=== PATIENT | female | born 1975 | race Caucasian/White ===

== ENCOUNTER 2017-10-18 14:20 | Emergency (ER) | payer OTHER ==
[2017-10-18 14:29] VITALS: BP 150/80
--- NOTE | 2017-10-18 15:12 | ED Physician Documentation ---
History of Present Illness - Stated complaint Stated Complaint: LEG PAIN - Chief complaint Chief Complaint: Ext Problem - History obtained from History obtained from: Patient - History of Present Illness Timing: Last night Pain level max: 7 Pain level now: 7 Improved by: rest Worsened by: walking - Additonal information Additional information: Patient is a 41-year-old female who states she was getting out of bed, felt/ heard a pop in her left lower extremity and now has difficulty walking. She is able to bear weight, but it is painful. Has been taking Tylenol for pain. No history of clotting disorders, no recent travel surgery or immobilization. Review of Systems Constitutional: denies: Fever, Chills GI: denies: Nausea, Vomiting : denies: Now [facility] PAST MEDICAL HISTORY - Past Medical History Past Medical History: Yes GI: Pancreatitis - Past Surgical History Past Surgical History: Yes General: Cholecystectomy - Present Medications Home Medications: Ambulatory Orders Medication Instructions Recorded Confirmed Meloxicam [Mobic] 7.5 mg PO BID PRN #20 tablet 10/18/17 - Allergies Allergies/Adverse Reactions: Allergies Allergy/AdvReac Type Severity Reaction Status Date / Time No Known Drug Allergies Allergy Verified 11/16/15 20:58 - Social History Does the pt smoke?: No Smoking Status: Never smoker Does the pt drink ETOH?: No Does the pt have substance abuse?: No - Immunizations Immunizations are current?: Yes PD ED PE NORMAL - Vitals Vital signs reviewed: Yes - General General: Alert and oriented X 3, No acute distress - Derm Derm: Warm and dry - Extremities Extremities: Other (L calf - plantar flexion present with calderon test. mild swelling. no ecchymosis. no bony tenderness. NVI.) - Neuro Neuro: Alert and oriented X 3 Results - Vitals Vitals: Vital Signs - 24 hr 10/18/17 14:26 Temperature 36.0 C L Heart Rate 97 Respiratory 16 Rate Blood Pressure 150/80 H O2 Saturation 98 Oxygen O2 Source Room air PD MEDICAL DECISION MAKING - ED course Complexity details: considered differential, d/w patient ED course: Patient is a 41-year-old female who presents to the emergency department what sounds like a left calf strain. No evidence of Achilles rupture. She is not tender along the Achilles tendon. No compartment syndrome. Compartments are all soft. Neurovascularly intact. No evidence of DVT. Placed in a walking boot for comfort and will follow up closely with her doctor. Patient counseled regarding signs and symptoms for which I believe and urgent re-evaluation would be necessary. Patient with good understanding of and agreement to plan and is comfortable going home at this time This document was made in part using voice recognition software. While efforts are made to proofread this document, sound alike and grammatical errors may occur. Departure - Departure Disposition: Home, Self Care Clinical Impression: Strain of calf muscle Qualifiers: Encounter type: initial encounter Laterality: left Qualified Code(s): S86.812A - Strain of other muscle(s) and tendon(s) at lower leg level, left leg, initial encounter Condition: Good Instructions: ED Strain Muscle Ext Follow-Up: your,doctor in 1 week for repeat evaluation [Other] Prescriptions: Meloxicam [Mobic] 7.5 mg PO BID PRN #20 tablet PRN Reason: Pain Comments: You need to be reevaluated in 1 week, wear the boot as needed for comfort. Make sure to take your foot out of the brace regularly for gentle stretching. You can also use ice and heat at home. Return if you worsen. Discharge Date/Time: 10/18/17 15:20
== END 2017-10-18 15:20 | disposition home or self-care (01) ==
LOC: ED 14:20
DX: S86.112A Strain of other muscle(s) and tendon(s) of posterior muscle group at lower leg level, left leg, initial encounter (principal); X58.XXXA Exposure to other specified factors, initial encounter; Y92.013 Bedroom of single-family (private) house as the place of occurrence of the external cause; Z86.39 Personal history of other endocrine, nutritional and metabolic disease
CPT/HCPCS: 99283

== ENCOUNTER 2023-01-10 15:25 | Outpatient (CLI) | payer OTHER ==
[2023-01-10 15:39] LABS: BASOPHILS # (AUTO) 0.1 10^3/uL (0.0-0.1); BASOPHILS % (AUTO) 0.6 %; EOSINOPHILS # (AUTO) 0.2 10^3/uL (0.0-0.7); HCT - HEMATOCRIT 44.9 % (37.0-47.0); HGB - HEMOGLOBIN 14.8 g/dL (12.0-16.0); LYMPHOCYTES # (AUTO) 2.5 10^3/uL (1.5-3.5); LYMPHOCYTES % (AUTO) 31.1 %; MEAN CORPUSCULAR HEMOGLOBIN 28.3 pg (27.0-31.0); MEAN CORPUSCULAR VOLUME 85.9 fL (81.0-99.0); MEAN PLATELET VOLUME 8.2 fL (7.9-10.8); MONOCYTES # (AUTO) 0.5 10^3/uL (0.0-1.0); MONOCYTES % (AUTO) 6.4 %; NEUTROPHILS # (AUTO) 4.7 10^3/uL (1.5-6.6); NEUTROPHILS % (AUTO) 58.7 %; PLT - PLATELET COUNT 383 10^3/uL (130-450); RED BLOOD COUNT 5.23 10^6/uL (4.20-5.40); RED CELL DISTRIBUTION WIDTH 13.7 % (12.0-15.0)
[2023-01-10 16:00] LABS: ALBUMIN 3.7 g/dL (3.2-5.5); ALKALINE PHOSPHATASE 80 IU/L (42-121); ALT ALANINE AMINOTRANSFERASE 23 IU/L (10-60); AST ASPARTATE AMINOTRANSFERASE 18 IU/L (10-42); BILIRUBIN,TOTAL 0.4 mg/dL (0.2-1.0); BUN - BLOOD UREA NITROGEN 16 mg/dL (6-20); CALCIUM 9.2 mg/dL (8.5-10.3); CARBON DIOXIDE - CO2 28 mmol/L (21-32); CHLORIDE 105 mmol/L (101-111); CHOL/HDL RATIO 6.9 (<4.4); CHOLESTEROL 291 mg/dL; CREATININE 0.9 mg/dL (0.4-1.0); GFR - MDRD 67 (>89); GLUCOSE 101 mg/dL (70-100); HDL CHOLESTEROL 42 mg/dL; LDL CHOLESTEROL,CALCULATED 183 mg/dL; LDL/HDL RATIO 4.4 (<4.4); POTASSIUM 3.9 mmol/L (3.5-5.0); SODIUM 139 mmol/L (135-145); TOTAL PROTEIN 7.4 g/dL (6.7-8.2); TRIGLYCERIDES 331 mg/dL; VLDL CHOLESTEROL 66 mg/dL
[2023-01-10 16:19] LABS: THYROID STIMULATING HORMONE 2.12 uIU/mL (0.34-5.60)
[2023-01-10 21:41] LABS: ESTIMATED AVERAGE GLUCOSE 105 mg/dL (70-100); HEMOGLOBIN A1c% 5.3 % (4.27-6.07)
== END 2023-01-10 15:26 | disposition home or self-care (01) ==
LOC: LAB 15:25
PROVIDERS: ATTEND Nurse Practitioner Family
DX: Z00.00 Encounter for general adult medical examination without abnormal findings (principal); Z13.220 Encounter for screening for lipoid disorders; E66.01 Morbid (severe) obesity due to excess calories; Z68.42 Body mass index [BMI] 45.0-49.9, adult; N91.2 Amenorrhea, unspecified; N95.9 Unspecified menopausal and perimenopausal disorder
CPT/HCPCS: 36415; 80053; 80061; 83036; 83721; 84443; 84702; 85025

== ENCOUNTER 2023-01-27 10:57 | Outpatient (CLI) | payer OTHER ==
--- NOTE | 2023-01-28 11:15 | Mammography Report ---
BILATERAL DIGITAL SCREENING MAMMOGRAM 3D/2D WITH EXAGGERATED CC: 01/27/2023 CLINICAL: Routine screening. Baseline exam. No prior exams were available for comparison. Both breasts are heterogeneously dense, which may obscure small masses (category c / 51-75% glandular tissue). There is a 3.5 cm x 2.5 cm oval equal density mass with an obscured margin in the right breast at 9 o 'clock posterior depth. There is a possible 1.4 cm oval asymmetry in the left breast posterior depth lateral region seen on t he craniocaudal view only. No other significant masses or calcifications are seen in either breast. IMPRESSION: INCOMPLETE: NEEDS ADDITIONAL IMAGING EVALUATION The 3.5 cm x 2.5 cm oval equal density mass in the right breast at 9 o'clock posterior depth resemble s clustered cysts and is indeterminate. Additional views with possible ultrasound are recommended. The possible 1.4 cm oval asymmetry in the left breast posterior depth lateral region seen on the cran iocaudal view only resembles fibroglandular tissue and is indeterminate. Additional views with possi ble ultrasound are recommended. Based on the Tyrer Cuzick model (a risk assessment model) the patients lifetime risk is 10.5% and [facility] 10 year risk is 2.0%. According to the ACR, ACS, and NCCN guidelines, an annual breast MRI exam ridge ng with mammogram is recommended if the patients lifetime risk is 20% or greater. This exam was interpreted at Station ID: [id number]. NOTE: For mammograms, a report in lay terms will be sent to the patient. Approximately 15% of breast malignancies will not be visualized mammographically. In the management of a palpable breast mass, a negative mammogram must not discourage biopsy of a clinically suspicious lesion. Electronically Signed By: Kurt Viramontes M.D. aty/:01/27/2023 13:15:18 ACR BI-RADS Category 0: Incomplete 3340F PARENCHYMAL PATTERN: (D) - The breast(s) demonstrate(s) heterogeneously dense fibroglandular parenchy ma. BI-RADS CATEGORY: (0) - 0 Mammo and [place] [id number] Immediate follow-up LATERALITY: (B)
== END 2023-01-27 10:58 | disposition home or self-care (01) ==
LOC: DI 10:57
DX: Z12.31 Encounter for screening mammogram for malignant neoplasm of breast (principal); R92.8 Other abnormal and inconclusive findings on diagnostic imaging of breast

== ENCOUNTER 2023-02-24 12:10 | Outpatient (CLI) | payer OTHER ==
--- NOTE | 2023-02-25 09:33 | Ultrasound Report ---
LIMITED ULTRASOUND OF LEFT BREAST: 02/24/2023 CLINICAL: Patient returns today to evaluate a focal asymmetry in the left breast. Comparison is made to exams dated: 02/24/2023 mammogram and 01/27/2023 mammogram - [facility]. Color flow ultrasound of the left breast 2 o'clock region was performed. Maddox scale images of the r eal-time examination were reviewed. There is a possible 0.7 cm x 0.6 cm x 0.1 cm complicated cyst in the left breast at 2 o'clock posteri or depth 6 cm from the nipple. This correlates with mammography findings. IMPRESSION: PROBABLY BENIGN The possible 0.7 cm x 0.6 cm x 0.1 cm complicated cyst in the left breast is probably benign. Follow -up mammogram and ultrasound in 6 months is recommended. A follow-up mammogram and an ultrasound in 6 months is recommended to demonstrate stability. This exam was interpreted at Station ID: [id number]. Electronically Signed By: Chandler [email or web address]/mk:02/24/2023 13:51:44 Ultrasound BI-RADS: 3 Probably benign BI-RADS CATEGORY: (3) - 3 Mammo and [place] [id number] 6 month follow-up LATERALITY: (B)
--- NOTE | 2023-02-25 09:33 | Ultrasound Report ---
LIMITED ULTRASOUND OF RIGHT BREAST: 02/24/2023 CLINICAL: Additional evaluation requested from prior study. Comparison is made to exams dated: 01/27/2023 mammogram and 02/24/2023 mammogram - [facility]. Color flow ultrasound of the right breast 9 o'clock region was performed. Maddox scale images of the r eal-time examination were reviewed. There is a benign 1.4 cm x 3.7 cm x 3 cm cluster of cysts in the right breast at 9 o'clock posterior depth 10 cm from the nipple. IMPRESSION: BENIGN There is no sonographic evidence of malignancy. The 1.4 cm x 3.7 cm x 3 cm cluster of cysts in the right breast is benign. This exam was interpreted at Station ID: [id number]. Electronically Signed By: Chandler Taveras M.D. lc/:02/24/2023 13:53:12 Ultrasound BI-RADS: 2 Benign BI-RADS CATEGORY: (2) - 2 RECOMMENDATION: (ADDMAM) - Recommend additional mammographic views. recall n/a LATERALITY: (B)
--- NOTE | 2023-02-25 09:33 | Mammography Report ---
BILATERAL DIGITAL DIAGNOSTIC MAMMOGRAM 3D/2D: 02/24/2023 CLINICAL: Patient returns today to evaluate asymmetries in bilateral breasts. Comparison is made to exam dated: 01/27/2023 mammogram - [facility]. Both breasts are heterogeneously dense, which may obscure small masses (category c / 51-75% glandular tissue). There is a 3.5 cm x 2.5 cm oval mass with a circumscribed margin in the right breast at 9 o'clock pos terior depth. This is seen in additional views. There is a 1.2 cm oval asymmetry in the left breast middle depth lateral region seen on the craniocau abhishek view only. This is seen in additional views. This is probably at 1-2:00 seen on ML view. No other significant masses or calcifications are seen in either breast. IMPRESSION: INCOMPLETE: NEEDS ADDITIONAL IMAGING EVALUATION The 3.5 cm x 2.5 cm oval mass in the right breast at 9 o'clock posterior depth is indeterminate. An ultrasound is recommended. The 1.2 cm oval asymmetry in the left breast middle depth lateral region seen on the craniocaudal vie w only is indeterminate. An ultrasound is recommended. This is probably at 1-2:00 seen on ML view. Based on the Tyrer Cuzick model (a risk assessment model) the patients lifetime risk is 11.3% and he r 10 year risk is 2.2%. According to the ACR, ACS, and NCCN guidelines, an annual breast MRI exam ridge ng with mammogram is recommended if the patients lifetime risk is 20% or greater. This exam was interpreted at Station ID: [id number]. NOTE: For mammograms, a report in lay terms will be sent to the patient. Approximately 15% of breast malignancies will not be visualized mammographically. In the management of a palpable breast mass, a negative mammogram must not discourage biopsy of a clinically suspicious lesion. Electronically Signed By: Chandler Taveras M.D. lc/:02/24/2023 13:44:27 ACR BI-RADS Category 0: Incomplete 3340F PARENCHYMAL PATTERN: (D) - The breast(s) demonstrate(s) heterogeneously dense fibroglandular parnadeemy ma. BI-RADS CATEGORY: (0) - 0 Ultrasound [id number] Immediate follow-up LATERALITY: (B)
== END 2023-02-24 12:11 | disposition home or self-care (01) ==
LOC: DI 12:10
PROVIDERS: ATTEND Nurse Practitioner Family
DX: R92.8 Other abnormal and inconclusive findings on diagnostic imaging of breast (principal)